=== PATIENT | male | born 1995 | race Caucasian/White ===

== ENCOUNTER 2017-11-15 08:44 | Emergency (ER) | payer OTHER ==
[2017-11-15 08:52] VITALS: BP 129/80; PULSE 76; RESP 16; TEMP 98.6; O2SAT 96
[2017-11-15] MEDS ORDERED: TDAP ADULT 0.5 ML INJ (BOOSTRIX) IM ONE (08:54)
--- NOTE | 2017-11-15 09:31 | EDPHY ---
H & P Smoking Status: Never smoked Time Seen by Provider: 11/15/17 09:01 HPI/ROS: CHIEF COMPLAINT: Left thumb injury HISTORY OF PRESENT ILLNESS: 22-year-old male presents to the emergency department with a laceration to his left thumb. Patient was at cooking school and was using a very sharp knife to chop vegetables and accidentally cut his left thumb. He is right-hand dominant. The incident happened just prior to arrival. He is unsure of his last tetanus shot. Denies any other trauma injury. The incident happened just prior to arrival. ROS: Denies numbness or tingling in his fingers, retained foreign body or injury to the other fingers. (Emilia Anderson) Past Medical/Surgical History: Negative (Emilia Anderson) Social History: Single, in culinary school (JustinEmilia M) Physical Exam: On examination the patient has a 1 cm in diameter skin avulsion to the distal, palmar aspect of the left thumb. It does not involve the nail. The wound does not extend into the DIP joint. He has full range of motion of his left thumb. There is slow active bleeding noted. No palpable bony tenderness. Full range of motion of his other fingers. Normal sensation to light touch with normal 2 point discrimination. (MaryellenEmilia leyva) Constitutional: Initial Vital Signs Temperature (C) 37 C 11/15/17 08:44 Heart Rate 76 11/15/17 08:44 Respiratory Rate 16 11/15/17 08:44 Blood Pressure 129/80 H 11/15/17 08:44 O2 Sat (%) 96 11/15/17 08:44 O2 Delivery Mode Room Air Allergies/Adverse Reactions: No Known Allergies Allergy (Unverified 11/15/17 08:49) Home Medications: Medication Instructions Recorded NK [No Known Home Meds] 11/15/17 MDM/Departure - MDM Medications Given: Discontinued Medications Diphtheria/Tetanus/Acell Pertussis (Boostrix) 0.5 ml IM .ONCE ONE Stop: 11/15/17 08:55 Last Admin: 11/15/17 09:30 Dose: 0.5 ml ED Course/Re-evaluation: The patient was evaluated and managed by the physician's cardiovascular physician assistant. My cosignature indicates that I reviewed the chart and I agree with the findings and plan of care as documented. I am the secondary supervising physician. ( Rachel Manning) 22-year-old male with skin avulsion to the left thumb. The wound was thoroughly cleansed and surgical foam and tube gauze dressing applied. Patient' s tetanus shot was updated. He was given wound care precautions. (Emilia Anderson) - Depart Disposition: Home, Routine, Self-Care Clinical Impression: Avulsion of skin of left thumb Qualifiers: Encounter type: initial encounter Qualified Code(s): S61.002A - Unspecified open wound of left thumb without damage to nail, initial encounter Condition: Good Instructions: Skin Avulsion (ED), Acute Wounds (ED) Additional Instructions: Keep wound dry, clean and protected. Your given a tetanus shot today in the emergency department. Please document this at home for your records. Return to emergency department with any signs or symptoms of infection such as redness , swelling, increased pain, fever, purulent drainage. Referrals: Tamica Anand, [Doctor of Osteopathy] - 2-3 days, if not improved
== END 2017-11-15 10:34 | disposition home or self-care (01) ==
DX: S61.002A Unspecified open wound of left thumb without damage to nail, initial encounter (principal); Z23 Encounter for immunization; W26.0XXA Contact with knife, initial encounter; Y92.218 Other school as the place of occurrence of the external cause; Y99.0 Civilian activity done for income or pay; Y93.G1 Activity, food preparation and clean up